=== PATIENT | female | born 1955 | race Asian ===

== ENCOUNTER 2017-11-15 04:03 | Inpatient (IN) | END 2017-11-16 21:15 | disposition home or self-care (01) | DRG 343 ==

== ENCOUNTER 2018-02-22 11:59 | Day surgery (SDC) | END 2018-02-22 19:31 | disposition home or self-care (01) ==

== ENCOUNTER 2018-11-06 08:46 | Inpatient (IN) | payer OTHER ==
[2018-11-04 14:48] VITALS: BMI 21.8
[~2018-11-06] VITALS: Ht 152.4 cm; Wt 49.7 kg
[~2018-11-06 08:46] MED LIST: BENA5TAB33 PO; BENAZAPRIL; LACTATED RINGER'S 1,000 ML IV SCH
[2018-11-06] MEDS ORDERED: hydrALAzine 20 MG INJ IV ONE ×3 (15:30→18:00)
[2018-11-06 15:43] VITALS: Ht 152.4 cm; Wt 49.7 kg
[2018-11-06 15:46] VITALS: BP 163/99; PULSE 96; RESP 16
--- NOTE | 2018-11-06 16:25 | PREAC ---
Date/Time of Note Date/Time of Note DATE: 11/06/18 TIME: 16:21 Anesthesia Eval and Record Evaluation Time Pre-Procedure Interview DATE: 11/06/18 TIME: 16:21 Age 62 Sex female NPO: 8 hrs Preoperative diagnosis Adnexal mass, ovarian mass Planned procedure Laparoscopic Bilateral Salpingo-Oophorectomy Past Medical History Past Medical History: Includes Cardio: HTN Surgery & Anesthesia Issues No known issue Meds Anticoagulation: No Beta Inge within 24 hr: No Reason Beta Inge not given: Pt. not on B-Inge Reported Medications Benazepril Hcl* (Benazepril Hcl*) 5 Mg Tablet, 5 MG PO DAILY, #30 TAB 11/06/18 Discontinued Reported Medications [Benazapril] No Conflict Check 02/22/18 Current Medications Lactated Ringer's 1,000 ml @ 25 mls/hr Q24H IV Last administered on 11/06/18at 15:29; Admin Dose 25 MLS/HR; Start 11/06/18 at 06:00; Stop 11/06/18 at 17:00 Meds reviewed: Yes Allergies Coded Allergies: chloramphenicol (Verified Allergy, Severe, SWELLING, 11/06/18) hydromorphone (Verified Allergy, Mild, N/V, 02/22/18) morphine (Verified Allergy, Mild, N/V, 11/06/18) Allergies Reviewed: Yes Labs/Studies Labs Reviewed: Reviewed by anesthesiologist test: N/A Studies: ECG (n/a), CXR (n/a) Pre-procedure Exam Last vitals Vital Signs Date Temp Pulse Resp B/P (MAP) Pulse Ox O2 O2 Flow FiO2 Time Delivery Rate 11/06/18 99.3 96 16 163/99 96 Room Air 15:46 (120) Airway: Adequate mouth opening, Adequate thyromental dist Mallampati: Mallampati II Teeth: Normal Lung: Normal Heart: Normal ASA Physical Status ASA physical status: 2 Emergency: None Planned Anesthetic General/MAC: ETT Nerve block: TAP (bilateral) Planned Pain Management Single shot nerve block, Parenteral pain med Pre-operative Attestations Prior to commencing anesthesia and surgery, the patient was re-evaluated, there was verification of: *The patient's identity *The results of appropriate recent lab work and preoperative vital signs *The above evaluation not changing prior to induction *Anesthetic plan, risk benefits, alternative and complications discussed with patient/family; questions answered; patient/family understands, accepts and wishes to proceed. JB WELCH MD Nov 06, 2018 16:25
--- NOTE | 2018-11-06 16:33 | HPN ---
Date/Time of Note Date/Time of Note DATE: 11/06/18 TIME: 16:33 Interval H&P Admission Note Pt. seen H&P reviewed: No system changes VIDYA TSAI MD Nov 06, 2018 16:33
[2018-11-06] MEDS ORDERED: ROCURONIUM 50 MG INJ ONE (16:38)
[2018-11-06] MEDS ORDERED: ROPIVACAINE 0.2% 20 ML VIAL ONE (16:38)
[2018-11-06] MEDS ORDERED: FENTAnyl 50 MCG/ML VIAL ONE (16:38)
[2018-11-06] MEDS ORDERED: PROPOFOL 0 ML ONE (16:38)
[2018-11-06] MEDS ORDERED: MIDAZOLAM 1 MG/ML 2 ML INJ ONE (16:38)
[2018-11-06] MEDS ORDERED: CEFAZOLIN 1 GM INJ ONE (16:38)
--- NOTE | 2018-11-06 17:03 | PAC ---
Date/Time of Note Date/Time of Note DATE: 11/06/18 TIME: 17:03 Post-Anesthesia Notes Post-Anesthesia Note Last documented vital signs Vital Signs Date Temp Pulse Resp B/P (MAP) Pulse Ox O2 O2 Flow FiO2 Time Delivery Rate 11/06/18 99.3 96 16 163/99 96 Room Air 15:46 (120) Activity: WNL Respiratory function: WNL Cardiovascular function: WNL Mental status: Baseline Pain reasonably controlled: Yes Hydration appropriate: Yes Nausea/Vomiting absent: Yes Comments Case Cancelled pt discharged home by Dr Davidson. JB WELCH MD Nov 06, 2018 17:03
--- NOTE | 2018-11-06 17:07 | DS ---
Date/Time of Note Date/Time of Note DATE: 11/06/18 TIME: 17:02 Discharge Summary Admission/Discharge Info Admit Date/Time Nov 06, 2018 at 14:06 Discharge Date/Time 11-06-18 Discharge Diagnosis Pelvic mass vs. small bowel mass Patient Condition: Good Procedures None Hospital Course Patient chart was review carefully in [facility]. Dr. 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 There were no ovarian masses. After discussion with patient and her daughter, we decided to cancel the case today and reschedule laparoscopic procedure with Dr. Mac or Dr. Mueller. I am willing to coordinate LSC BSO and laparoscopic small bowel resection together at appropriate time. Patient will make appointment with Dr. Mac and we will re-schedule surgery. Home Meds Reported Medications Benazepril Hcl* (Benazepril Hcl*) 5 Mg Tablet, 5 MG PO DAILY, #30 TAB 11/06/18 Discontinued Reported Medications [Benazapril] No Conflict Check 02/22/18 Primary Care Provider Not On Staff Doctor Time spent on discharge: > 30 minutes IVDYA TSAI MD Nov 06, 2018 17:07
[2018-11-06 17:08] VITALS: BP 179/123; PULSE 109; RESP 20
[2018-11-06 17:45] VITALS: BP 166/112
[2018-11-06 18:33] VITALS: BP 90/55
[2018-11-06 18:47] VITALS: BP 107/70
== END 2018-11-06 19:03 | disposition home or self-care (01) | DRG 376 ==
LOC: REC 14:06
PROVIDERS: ADMIT Obstetrics & Gynecology Gynecologic Oncology; ATTEND Obstetrics & Gynecology Gynecologic Oncology
DX: D49.0 Neoplasm of unspecified behavior of digestive system (principal); I10 Essential (primary) hypertension; Z53.8 Procedure and treatment not carried out for other reasons
CPT/HCPCS: 86850; 86900; 86901; J0360; J0690; J2250; J2795; J3010